=== PATIENT | female | born 1930 | race Caucasian/White ===

== ENCOUNTER 2019-03-26 13:19 | Emergency (ER) | payer MEDICARE, OTHER ==
--- OUTSIDE RECORDS SUMMARY | 2019-03-26 13:25 | XMS REPORT | Continuity of Care Document ---
:1930 External Reference #:[id number] Author Name Watson Reaves III, MD Address [address] [place] [id number] Care Team Providers Name Role Phone Unruly Hopkins OD Care Team Information Education And Training Manager [phone] Spencer Gutierrez MD Care Team Information Education And Training Manager [phone] Problems Active Problems Provider Date Combined form of senile cataract Watson Reaves III, MD Onset: 2018 Primary open angle glaucoma of left Watson Reaves III, MD Onset: 08/07 eye Primary open angle glaucoma of right Watson Reaves III, MD Onset: eye Social History Type Date Description Comments Sex Unknown ETOH Use Occasionally consumes alcohol Tobacco Use Start: Unknown Patient has never smoked Smoking Status Reviewed: 02/27/19 Patient has never smoked Allergies, Adverse Reactions, Alerts Description No Known Drug Allergies Medications Active Medications SIG Qnty Indications Ordering Provider Date Combigan instill one drop 20ml H40.1113 Watson F 12/21/2017 0.2-0.5% into both eyes DeVincentis III MD Solution twice a day H40.1122 Azopt instill one drop 20ml H40.1113 Watson F 09/17/2017 1% Suspension into right eye DeVincentis III MD three times a day Latanoprost instill one drop 7.5ml H40.1122 Watson F 0.005% into both eyes at DeVincentis III MD Solution bedtime as directed H40.1113 Lisinopril 5mg Take One Tablet By Mouth Unknown Tablets Every Morning Bystolic 10mg Take One Tablet By Mouth Unknown Tablets Every Day Hydrochlorothiazide Unknown 12.5mg Capsules Sertraline HCL Unknown 100mg Tablets Immunizations Description No Information Available Vital Signs Date Vital Result Comment 02/27/2019 2:28pm Intraocular Pressure Right Eye 13 mmHg Ap 02:28 PM Intraocular Pressure Left Eye 14 mmHg Ap 08/07/2018 9:19am Intraocular Pressure Right Eye 14 mmHg Ap 09:19 Am Intraocular Pressure Left Eye 14.5 mmHg Ap 09:19 Am Results Description No Information Available Procedures Date Code Description Status 02/27/2019 87138 Scan Computer Diag Imag W/Report Optic Nerve Completed 02/27/2019 85328 Vis Field W/Med Diag;Ext,Julio Per Completed 02/27/2019 32287 Exam, Comprehensive, Est PT Completed Medical Devices Description No Information Available Encounters Description No Information Available Assessments Date Code Description Provider 02/27/2019 H40.1113 Primary open-angle glaucoma, right Watson Reaves III, MD eye, severe stage 02/27/2019 H40.1122 Primary open-angle glaucoma, left Watson F Jelly LASSITER MD eye, moderate stage 02/27/2019 H25.813 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 Recommend patient take at dinner time instead of bed. Continue other medications.Follow up:4-5 m iop, OD 10-2, OS 30-2, OU Nerve Oct, Dil 0.5%.H40.1122 Primary open-angle glaucoma, left eye, moderate [id number] Combined forms of age-related cataract, bilateralComments:The patients cataract is not affecting ADL's at this time. Patient advised to call with change in vision, glare and/or halos while driving at night or difficulty reading fine print. Functional Status Description No Information Available Mental Status Description No Information Available Referrals Description No Information Available
[2019-03-26 13:32] VITALS: BP 180/90
--- NOTE | 2019-03-26 13:46 | UC ---
Head Injury HPI - HPI Summary HPI Summary: 88-year-old woman comes in with a chief complaint of a fall and facial injury. Just prior to arrival patient tripped and fell struck her face primarily her nose. She is an injury on her nose that was bandaged site by EMS. She's been having epistaxis. She does take a baby aspirin but other than that no blood thinners. No loss of consciousness no change in vision or speech no weakness or numbness. Besides her nose patient does not complain of any other injuries. - History Of Current Complaint Chief Complaint: UCGeneralIllness Stated Complaint: F/U FALL Time Seen by Provider: 03/26/19 13:40 Pain Intensity: 4 - Allergies/Home Medications Allergies/Adverse Reactions: Allergies Allergy/AdvReac Type Severity Reaction Status Date / Time No Known Allergies Allergy Verified 03/26/19 13:30 Home Medications: Home Medications Aspirin EC TAB* [Ecotrin EC Low Dose 81 MG*] 81 mg PO DAILY 03/26/19 [History Confirmed 03/26/19] Hydrochlorothiazide TAB* [Hydrodiuril TAB*] 12.5 mg PO DAILY 03/26/19 [History Confirmed 03/26/19] Lisinopril TAB* [Prinivil TAB*] 5 mg PO DAILY 03/26/19 [History Confirmed ] Nebivolol HCl [Bystolic] 5 mg PO DAILY 03/26/19 [History Confirmed 03/26/19] PMH/Surg Hx/FS Hx/Imm Hx Previously Healthy: Yes Cardiovascular History: Hypertension - Surgical History Surgical History: Yes Surgery Procedure, Year, and Place: appy - Family History Known Family History: Positive: Non-Contributory - Social History Alcohol Use: Daily Alcohol Amount: 1 glass of wine nightly Substance Use Type: None Smoking Status (MU): Never Smoked Tobacco Review of Systems All Other Systems Reviewed And Are Negative: Yes Constitutional: Positive: Negative Skin: Positive: Other - SEE HPI Eyes: Positive: Negative ENT: Positive: Other - SEE HPI Respiratory: Positive: Negative Cardiovascular: Positive: Negative Gastrointestinal: Positive: Negative Motor: Positive: Negative Neurovascular: Positive: Negative Musculoskeletal: Positive: Negative Neurological: Positive: Negative Psychological: Positive: Negative Is Patient Immunocompromised?: No Physical Exam Triage Information Reviewed: Yes Appearance: Well-Appearing, Well-Nourished, Pain Distress - Mild with examination of the nose Vital Signs: Initial Vital Signs Temp 98.1 F 03/26/19 13:30 Pulse 85 03/26/19 13:30 Resp 20 03/26/19 13:30 BP 180/90 03/26/19 13:30 Pulse Ox 98 03/26/19 13:30 Vital Signs Reviewed: Yes Eye Exam: Normal Eyes: Positive: Conjunctiva Clear, Other: - PERRLA EOMI no photophobia. ENT: Positive: TMs normal - Cerumen obscures the TMs., Other - Nose Is swollen and tender to palpation. She does have blood in both nares a do not appreciate nasal septum hematoma. Neck: Positive: Supple, Nontender Respiratory: Positive: Lungs clear, Normal breath sounds, No respiratory distress Cardiovascular: Positive: RRR Musculoskeletal: Positive: Strength Intact, ROM Intact Neurological: Positive: Alert, Muscle Tone Normal Psychological: Positive: Age Appropriate Behavior Skin: Positive: Other - On the bridge of the nose there is a 2 mm subcutaneous laceration is draining serosanguineous fluid. There is abrasions surrounding it. Head Injury Course/Dx - Course Course Of Treatment: Home Teaching Grades 7 And 8 Teacher: Watson Friend F ([id number]) Manager Universal: EDELMIRA ( SHAANCE) Report Date: 03/26/2019 13:46:00 Report Status: Final ====== Start of Report Content Patient Name: MELANIA HOBSON Medical Record#: [id number] Ordering Physician: Marshall Lopez MD Acct.#: [id number] : Age: 88 Sex: F Location: [facility] Exam Date: 03/26/191345 ADM Status: REG ER Order Information: CT SPINE CERVICAL W/O Accession Number: [id number] CPT: 17556 INDICATION: Head injury. COMPARISON: There are no prior studies available for comparison. TECHNIQUE: Contiguous axial sections were obtained from the skull base through the T1 vertebra. Images were reconstructed in the sagittal and coronal planes. FINDINGS: VERTEBRA: There is mild anterolisthesis of C4 relative to C5 which is likely degenerative in origin. No prevertebral soft tissue swelling or fracture is seen. C2-C3: There is mild posterior uncinate process spurring and facet osteoarthritis on the left side. No significant spinal canal narrowing is present. There is mild neural foraminal narrowing on the left side. C3-C4: There is mild posterior uncinate process spurring and facet osteoarthritis. No significant spinal canal narrowing is present. There is mild neural foraminal narrowing on the right side and moderate neural foraminal narrowing on the left side. C4-C5: There is mild posterior uncinate process spurring and facet osteoarthritis. No significant spinal canal narrowing is present. There is moderate to severe bilateral neural foraminal narrowing. C5-C6: There is mild posterior uncinate process spurring. No significant spinal canal narrowing is present. There is mild neural foraminal narrowing on the right side. C6-C7: There is mild posterior uncinate process spurring. No significant spinal canal narrowing is present. There is mild bilateral neural foraminal narrowing. LUNG APICES: There is bilateral apical pleural-parenchymal scarring. IMPRESSION: 1. NO EVIDENCE FOR FRACTURE. 2. MODERATE CERVICAL SPONDYLOSIS DESCRIBED. <Electronically signed by Watson Friend MD in OV> 03/26/19 1430 Dictated By: Watson Friend MD Dictated Date/Time : 03/26/191421 Transcribed Date/Time: 03/26/191421 Copy to: CC:Spencer Gutierrez MD; Marshall Lopez MD Imaging - [facility] - [facility] [address] [address] ph ) ph [phone]) ph ([phone]) End of Report Content Home Teaching Grades 7 And 8 Teacher: Celio Robledo Daniel, ([id number]) Manager Universal: EDELMIRA ( NUANCE) Report Date: 03/26/2019 13:46:00 Report Status: Final ====== Start of Report Content Patient Name: MELANIA HOBSON Medical Record#: [id number] Ordering Physician: Marshall Lopez MD Acct.#: [id number] : Age: 88 Sex: F Location: [facility] Exam Date: 03/26/19 1346 ADM Status: [facility] Order Information: CT MAXILLOFACIAL W/O Accession Number : [id number] CPT: 33694 HISTORY: HEAD INJURY COMPARISONS: None TECHNIQUE: Multiple contiguous axial CT scans were obtained of the face without intravenous contrast, with coronal and sagittal multiplanar reformations. FINDINGS: BONES: There are comminuted fractures of the nasal bones bilaterally. The orbital rims are intact. The zygomatic arches are intact. Degenerative changes are noted of the cervical spine. ORBITS: The globes are round. The optic nerves are symmetric. The extraocular musculature is normal. There is no post septal or intraconal inflammatory change. There is no retrobulbar hematoma. PARANASAL SINUSES: The nasal septum is deviated to the left. BRAIN AND SOFT TISSUE: Unremarkable. OTHER: None. IMPRESSION: COMMINUTED FRACTURE OF THE NASAL BONES BILATERALLY. <Electronically signed by Celio Robledo MD in OV> 03/26/191420 Dictated By: Celio Robledo MD Dictated Date/Time: 03/26/191419 Transcribed Date/Time: 03/26/191419 Copy to: CC:Spencer Gutierrez MD; Marshall Lopez MD Imaging - [facility] [id number] [place] [address] ph ([phone] ph ) ph ([phone]) End of Report Content Home Teaching Grades 7 And 8 Teacher: Watson Friend F ([id number]) Manager Universal: EDELMIRA ( SHAANCE) Report Date: 03/26/2019 13:46:00 Report Status: Final ====== Start of Report Content Patient Name: MELANIA HOBSON Medical Record#: [id number] Ordering Physician: Marshall Lopez MD Acct.#: [id number] : Age: 88 Sex: F Location: [facility] Exam Date: 03/26/19 1346 ADM Status: REG ER Order Information: CT BRAIN WO Accession Number: [id number] CPT: 13044 INDICATION: Head injury. COMPARISON: There are no relevant prior studies available for comparison. TECHNIQUE: Contiguous axial sections of the brain were obtained from the skull base to the vertex without contrast. FINDINGS: The ventricles, cisterns and sulci are enlarged consistent with age-related atrophy. No significant focal abnormality or mass effect is seen. There is no evidence for hemorrhage. There is soft tissue swelling anterior to the nose and left frontal sinus. No fracture is appreciated. The visualized paranasal sinuses and mastoid air cells appear clear. IMPRESSION: NO EVIDENCE FOR ACUTE INTRACRANIAL ABNORMALITY. <Electronically signed by Watson Friend MD in OV> 1421 Dictated By: Watson Friend MD Dictated Date/Time: 03/26/191419 Transcribed Date/Time: 03/26/191419 Copy to: CC:Spencer Gutierrez MD; Marshall Lopez MD Imaging - [facility] Imaging - [facility] [address] [place] [address] ph ([phone] ph ) ph ([phone]) End of Report Content I discussed the CT is with the patient and her . The abrasion on the nose was cleaned and irrigated by nursing and I placed adhesive dressing over that which stopped the bleeding. The nosebleed was almost completely stopped at discharge. Starting the patient on amoxicillin and she can follow-up with ENT here in [place]. If the patient does not stop bleeding or worsens or she has any other worsening or questions or concerns she is to get reevaluated emergency department. - Differential Dx/Diagnosis Provider Diagnosis: Nasal fracture, Head injury, Nasal laceration Discharge ED - Sign-Out/Discharge Documenting (check all that apply): Patient Departure All imaging exams completed and their final reports reviewed: Yes - Discharge Plan Condition: Stable Disposition: HOME Prescriptions: Amoxicillin PO (*) [Amoxicillin 875 MG (*)] 875 mg PO BID #14 tab Patient Education Materials: Nasal Fracture (ED), Nosebleed (ED), Head Injury ( ED), Facial Laceration (ED) Referrals: Spencer Gutierrez MD [Primary Care Provider] - Jose Dukes MD [Medical Doctor] - Sabas Brantley MD [Medical Doctor] - Additional Instructions: FOLLOW UP WITH ENT. CALL TODAY TO ARRANGE FOLLOW UP. GET REEVALUATED SOONER IF NOT IMPROVING OR YOUR CONDITION WORSENS; PAIN, YOU FEEL ILL, CONTINUED OR WORSE BLEEDING OR ANY QUESTIONS OR CONCERNS. - Billing Disposition and Condition Condition: STABLE Disposition: Home
== END 2019-03-26 15:38 | disposition home or self-care (01) ==
LOC: UCCORT 13:19
DX: S02.2XXA Fracture of nasal bones, initial encounter for closed fracture (principal); S01.21XA Laceration without foreign body of nose, initial encounter; S09.90XA Unspecified injury of head, initial encounter; I10 Essential (primary) hypertension; Z79.82 Long term (current) use of aspirin; Z79.899 Other long term (current) drug therapy; W00.0XXA Fall on same level due to ice and snow, initial encounter; Y92.9 Unspecified place or not applicable
CPT/HCPCS: 70450; 70486; 72125; 99212; G0463